=== PATIENT | female | born 1965 | race Caucasian/White ===

== ENCOUNTER 2017-10-08 05:18 | Emergency (ER) | payer BC ==
[~2017-10-08] VITALS: Ht 167.6 cm; Wt 70.0 kg
[2017-10-08 05:20] VITALS: BP 158/84; PULSE 131; RESP 22; TEMP 97.8; O2SAT 100
[2017-10-08] MEDS ORDERED: traMADol HCL 50 MG TAB PO ONE (05:45)
[2017-10-08] MEDS ORDERED: KETOROLAC TROMETHAMINE 60 MG/2 ML (IM) VIAL IM ONE (05:45)
--- NOTE | 2017-10-08 05:48 | PD ---
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 last week she said yesterday she woke up severe pain in her knee right-sided no trauma she cannot think of any heavy strenuous exercise that she could have done. however she has tenderness mild swelling and severe burning intra-articular she says. Patient has no history of gout no history of pseudogout no history of trauma no history of arthritis patient has not taken anything for the pain she is here at 5 AM in the a.m. for pain in her right knee swelling tenderness. It is not red nor hot on initial exam PFSH Past Medical History Medical History: Denies Significant Hx ?: Not Past Surgical History Cholecystectomy: Yes Social History Alcohol Use: Yes Tobacco Use: Yes Substance Use: No Allergies-Medications (Allergen,Severity, Reaction): Coded Allergies: No Known Allergies (Unverified , 10/08/17) Reported Meds & Prescriptions Reported Meds & Active Scripts Active Tramadol (Tramadol HCl) 50 Mg Tab 50 Mg PO Q6H PRN Ibuprofen 600 Mg Tab 600 Mg PO Q6H PRN Review of Systems Except as stated in HPI: all other systems reviewed are Neg Physical Exam Narrative GENERAL: Nontoxic-appearing however she is having a lot of pain rocking in the bed holding her right knee rubbing her knee SKIN: Warm and dry. HEAD: Atraumatic. Normocephalic. EYES: Pupils equal and round. No scleral icterus. No injection or drainage. ENT: No nasal bleeding or discharge. Mucous membranes pink and moist. NECK: Trachea midline. No JVD. CARDIOVASCULAR: Regular rate and rhythm. RESPIRATORY: No accessory muscle use. Clear to auscultation. Breath sounds equal bilaterally. GASTROINTESTINAL: Abdomen soft, non-tender, nondistended. Hepatic and splenic margins not palpable. MUSCULOSKELETAL: Extremities slight swelling to the right knee in comparison to the left however there is no significant amount of effusion, the edges of her patella are easily palpated , most of her pain is along the medial collateral ligament No obvious deformities. not red nor hot NEUROLOGICAL: Awake and alert. No obvious cranial nerve deficits. Motor grossly within normal limits. Five out of 5 muscle strength in the arms and legs. Normal speech. PSYCHIATRIC: Appropriate mood and affect; insight and judgment normal. Data Data Last Documented VS Vital Signs Date Time Temp Pulse Resp B/P (MAP) Pulse Ox O2 Delivery O2 Flow Rate FiO2 10/08/17 05:20 97.8 131 22 158/84 (108) 100 Orders Orders Ketorolac Inj (Toradol Inj) (10/08/17 05:45) Tramadol (Ultram) (10/08/17 05:45) Knee, Complete (4vws) (10/08/17 ) Ed Discharge Order (10/08/17 06:56) Benjamín Bandage (10/08/17 06:59) MDM Medical Decision Making Medical Screen Exam Complete: Yes Emergency Medical Condition: Yes Differential Diagnosis Differential diagnoses include gout versus arthritis versus rheumatoid arthritis versus septic joint however the knee is not warm it is not red does not appear to be septic Narrative Course X-ray and Toradol IM and tramadol p.o. , no significant effusion seen , no indication to tap for therapy nor diagnostic Diagnosis Primary Impression: Knee swelling Referrals: Rickie Chacko MD Patient Instructions: General Instructions, Knee Bursitis (ED) Scripts Tramadol (Tramadol) 50 Mg Tab 50 MG PO Q6H Y for PAIN, #10 TAB 0 Refills Prov: Carson Macdonald MD 10/08/17 Ibuprofen (Ibuprofen) 600 Mg Tab 600 MG PO Q6H Y for Pain/Inflammation, #40 TAB 0 Refills Prov: Carson Macdonald MD 10/08/17 Disposition: 01 DISCHARGE HOME Carson Macdonald MD Oct 08, 2017 05:48
--- NOTE | 2017-10-08 06:44 | RADRPT ---
EXAM DATE/TIME: 10/08/2017 06:28 [facility] COMPARISON: No previous studies available for comparison. INDICATIONS : Right knee pain from unknown injury. MEDICAL HISTORY : None. SURGICAL HISTORY : None. ENCOUNTER: Initial ACUITY: 1 day PAIN SCORE: 7/10 LOCATION: Right knee. FINDINGS: Four view examination of the right knee demonstrates no evidence of fracture or dislocation. Bony mi neralization is normal. The articular surfaces are intact. The suprapatellar soft tissues have a no rmal configuration. CONCLUSION: Unremarkable examination of the right knee. Leroy Blackburn Jr., MD on October 08, 2017 at 6:42 Board Certified Radiologist. This report was verified electronically.
[2017-10-08] MEDS ORDERED: IBUP-232 PO (07:00)
[2017-10-08] MEDS ORDERED: TRAM50TA PO (07:00)
== END 2017-10-08 07:16 | disposition home or self-care (01) ==
LOC: NEPC 05:18
DX: M79.89 Other specified soft tissue disorders (principal); Z72.0 Tobacco use
CPT/HCPCS: 73564; 96372; 99283; J1885